=== PATIENT | male | born 1985 | race Caucasian/White ===

== ENCOUNTER 2017-07-26 18:57 | Emergency (ER) | payer MEDICARE, MEDICAID ==
[~2017-07-26] VITALS: Ht 172.7 cm; Wt 93.6 kg
[2017-07-26] MEDS ORDERED: SODIUM CHLORIDE FLUSH 10ML SYR IVF ONE (19:30)
[2017-07-26] MEDS ORDERED: ACETAMINOPHEN 500 MG TABLET PO ONE (19:30)
[2017-07-26] MEDS ORDERED: SODIUM CHLORIDE 0.9% 1,000ML IVBOLUS ONE ×2 (19:30→22:30)
[2017-07-26 19:34] LABS: WHITE BLOOD COUNT 8.7 x10^3/uL (3.4-10)
[2017-07-26] MEDS ORDERED: ACETAMINOPHEN 500 MG TABLET ONE (19:38)
[2017-07-26 19:46] LABS: BLOOD UREA NITROGEN 11 mg/dL (7-18)
[2017-07-26 19:51] LABS: RAPID INFLUENZA A Negative (Negative); RAPID INFLUENZA B Negative (Negative)
[2017-07-26] MEDS ORDERED: IBUPROFEN 200 MG TABLET ONE (21:20)
[2017-07-26] MEDS ORDERED: CEFTRIAXONE PMX 1GM/50ML 50 ML ONE (21:25)
[2017-07-26] MEDS ORDERED: IBUPROFEN 200 MG TABLET PO ONE (21:30)
[2017-07-26] MEDS ORDERED: CEFTRIAXONE PMX 1GM/50ML 50 ML IVPB ONE (21:30)
[2017-07-26 23:21] VITALS: BP 110/67
== END 2017-07-26 23:42 | disposition home or self-care (01) ==
LOC: ED 20:49
DX: R50.9 Fever, unspecified (principal); R05 Cough; R53.83 Other fatigue; Z88.6 Allergy status to analgesic agent
CPT/HCPCS: 36415; 71020; 80048; 82040; 83605; 84145; 85025; 87040; 87400; 96361; 96374; 99285; J0696; J7030

== ENCOUNTER 2017-07-27 19:02 | Emergency (ER) | payer MEDICARE, MEDICAID ==
[~2017-07-27] VITALS: Ht 177.8 cm; Wt 86.5 kg
[2017-07-27] MEDS ORDERED: ONDANSETRON 2MG/ML, 2ML IVPush ONE (19:30)
[2017-07-27] MEDS ORDERED: ACETAMINOPHEN 500 MG TABLET PO ONE (19:30)
[2017-07-27] MEDS ORDERED: SODIUM CHLORIDE 0.9% 1,000ML IVBOLUS ONE (19:30)
[2017-07-27] MEDS ORDERED: KETOROLAC 30 MG/1 ML IVPush ONE (19:30)
[2017-07-27] MEDS ORDERED: SODIUM CHLORIDE FLUSH 10ML SYR IVF ONE (19:30)
[2017-07-27] MEDS ORDERED: KETOROLAC 30 MG/1 ML ONE (19:39)
[2017-07-27] MEDS ORDERED: ONDANSETRON 2MG/ML, 2ML ONE (19:39)
[2017-07-27] MEDS ORDERED: ACETAMINOPHEN 500 MG TABLET ONE (19:39)
[2017-07-27 20:24] LABS: BLOOD UREA NITROGEN 10 mg/dL (7-18)
[2017-07-27 20:30] LABS: ASPARTATE AMINO TRANSFERASE 24 U/L (15-37)
[2017-07-27 21:11] LABS: RAPID INFLUENZA A POSITIVE (Negative); RAPID INFLUENZA B Negative (Negative)
[2017-07-27 21:12] LABS: HEMATOCRIT 45.4 % (39.2-51.8); HEMOGLOBIN 15.3 g/dL (13.7-18.0)
[2017-07-27 21:23] VITALS: BP 110/72
== END 2017-07-27 21:48 | disposition home or self-care (01) ==
LOC: ED 21:41
DX: J09.X2 Influenza due to identified novel influenza A virus with other respiratory manifestations (principal); J40 Bronchitis, not specified as acute or chronic; J31.0 Chronic rhinitis; B34.9 Viral infection, unspecified; F32.9 Major depressive disorder, single episode, unspecified
CPT/HCPCS: 36415; 71010; 80053; 82550; 83605; 85025; 87400; 96361; 96374; 96375; 99285; J1885; J2405; J7030

== ENCOUNTER 2019-07-18 17:11 | Emergency (ER) | payer MEDICARE, MEDICAID ==
[~2019-07-18] VITALS: Ht 172.7 cm; Wt 96.9 kg
[2019-07-18 17:18] VITALS: BP 143/99
[2019-07-18] MEDS ORDERED: IBUPROFEN 200 MG TABLET ONE (17:51)
[2019-07-18] MEDS ORDERED: HYDROcodone/APAP 5/325 TABLET ONE (17:51)
[2019-07-18] MEDS ORDERED: IBUPROFEN 600 MG TABLET PO ONE (18:00)
[2019-07-18] MEDS ORDERED: HYDROcodone/APAP 5/325 TABLET PO ONE (18:00)
== END 2019-07-18 18:11 | disposition home or self-care (01) ==
LOC: ED 18:05
DX: K02.9 Dental caries, unspecified (principal)
CPT/HCPCS: 99283

== ENCOUNTER → 2021-03-24 | Outpatient (CLI) | payer MEDICARE, MEDICAID | END | disposition home or self-care (01) | LOC: CFH 15:30 | PROVIDERS: ATTEND Nurse Practitioner Family | DX: S06.0X0S Concussion without loss of consciousness, sequela (principal); G44.89 Other headache syndrome; X58.XXXS Exposure to other specified factors, sequela | CPT/HCPCS: 70551 ==